=== PATIENT | female | born 1950 | race Caucasian/White ===

== ENCOUNTER 2018-06-09 07:57 | Day surgery (SDC) | payer MEDICARE, OTHER ==
[~2018-06-09] VITALS: Ht 157.5 cm; Wt 86.2 kg
[~2018-06-09 07:57] MED LIST: ASPI81EC PO; ATECHL PO; ATEN100 PO; ATEN50 PO; CALCA500S6; CYCL10 PO; ESTR1 PO; ESTR2; ESTR2 PO; HYDACE5 PO; HYDCHL12.5 PO; IBUP800 PO; LEVOXYL PO; LEVSOD125 PO; MULVITB&C PO; NAPR500 PO; OMEPRAZOLE MAGN20 MG PO; OXYACE5T PO; POTCHL10ER PO; POTCHL20ER PO; PREN-16 PO; RXCYCL10 PO; RXTRAM50 PO; TRAM50 PO
--- NOTE | 2018-06-09 08:20 | NUR ---
Ambulatory in Day SurgeryPatient states colon prep results clear. History, Chart, Medications and Allergies reviewed before start of procedure.Lungs clear T/O to Auscultation. Patient confirms NPO status and agrees with scheduled surgery. Patient States Post-Procedure ride home has been arranged.
--- NOTE | 2018-06-09 09:37 | NUR ---
06/09/18 0937 Janice Quan History, Chart, Medications and Allergies reviewed before start of procedure.PATIENT DETERMINED TO BE ASA APPROPRIATE FOR PROPOFOL SEDATION PRIOR TO START OF PROCEDURE BY . MONITOR INTACT WITH CONTINUOUS PULSE OXIMETRY AND INTERMITTENT BP.3-LEAD EKG REVIEWED WITH PHYSICIAN PRIOR TO START OF PROCEDURE.O2 VIA N/C INTACT THROUGHOUT SEDATION/PROCEDURE. PASSED ONM TO RAJNI GASTELUM THAT DR. KEMP REPORTS HE WOULD LIKE THE PATEINT TO RECEIVE IV PROTONIX PROIR TO DISCHARGE
== END 2018-06-09 22:36 | disposition home or self-care (01) ==
LOC: ORSCMMR 07:57 → ORD 09:00 → ORSCMMR 22:36
PROVIDERS: Internal Medicine Gastroenterology
PROC: 0DJD8ZZ Inspection of Lower Intestinal Tract, Via Natural or Artificial Opening Endoscopic (ICD-10-PCS; principal; 2018-06-09 09:00)
PROC: 0DB98ZX Excision of Duodenum, Via Natural or Artificial Opening Endoscopic, Diagnostic (ICD-10-PCS; principal; 2018-06-09 09:00)
PROC: 0DB58ZX Excision of Esophagus, Via Natural or Artificial Opening Endoscopic, Diagnostic (ICD-10-PCS; principal; 2018-06-09 09:00)
PROC: 0DB68ZX Excision of Stomach, Via Natural or Artificial Opening Endoscopic, Diagnostic (ICD-10-PCS; principal; 2018-06-09 09:00)
DX: D50.0 Iron deficiency anemia secondary to blood loss (chronic) (principal); K21.9 Gastro-esophageal reflux disease without esophagitis; K44.9 Diaphragmatic hernia without obstruction or gangrene; K57.30 Diverticulosis of large intestine without perforation or abscess without bleeding; Z87.11 Personal history of peptic ulcer disease; I10 Essential (primary) hypertension; E03.9 Hypothyroidism, unspecified; Z87.19 Personal history of other diseases of the digestive system; Z79.899 Other long term (current) drug therapy
CPT/HCPCS: 88305; 88341; 88342; C9113; J7120

== ENCOUNTER → 2023-07-09 | Outpatient (CLI) | payer OTHER ==
[2023-07-09 11:57] LABS: BASOPHILS ABSOLUTE AUTO 0.02 K/mm3 (0.00-0.23); BASOPHILS PERCENT AUTO 0 % (0-2); EOSINOPHILS ABSOLUTE AUTO 0.06 K/mm3 (0.00-0.68); EOSINOPHILS PERCENT AUTO 1 % (0-6); Hematocrit 46.6 % (33.0-51.0); Hemoglobin 15.1 g/dL (11.5-16.0); IMMATURE GRAN ABSOLUTE AUTO 0.03 K/mm3 (0.00-0.10); IMMATURE GRAN PERCENT AUTO 0 % (0-1); LYMPHOCYTES ABSOLUTE AUTO 2.02 K/mm3 (0.84-5.20); LYMPHOCYTES PERCENT AUTO 29 % (21-46); MONOCYTES ABSOLUTE AUTO 0.41 K/mm3 (0.16-1.47); MONOCYTES PERCENT AUTO 6 % (4-13); Mean Corpuscular HGB 31.7 pg (26.0-34.0); Mean Corpuscular HGB Conc 32.4 g/dL (31.5-36.5); Mean Corpuscular Volume 98 fL (80-100); NEUTROPHILS ABSOLUTE AUTO 4.37 K/mm3 (1.96-9.15); NEUTROPHILS PERCENT AUTO 63 % (41-73); Platelet Count 317 K/mm3 (150-400); RDW Coefficient Variation 13.7 % (11.7-14.2); RDW Standard Deviation 49.3 fL (35.1-46.3); Red Blood Cell Count 4.77 M/mm3 (3.80-5.20); White Blood Cell Count 6.91 K/mm3 (4.00-11.30)
[2023-07-09 12:07] LABS: Albumin, Blood 3.8 g/dL (3.4-5.0); Bilirubin, Total 0.6 mg/dL (0.1-1.0); Bun/Creatinine Ratio 14.4 (12.0-20.0); Calcium, Blood 9.9 mg/dL (8.5-10.1); Creatinine, Blood 0.9 mg/dL (0.40-1.00); Potassium, Blood 4.3 mmol/L (3.5-5.5); Total Protein, Blood 7.8 g/dL (6.4-8.2)
== END | disposition home or self-care (01) ==
LOC: LAB 11:46 → LAB SHORT 11:46
PROVIDERS: Chiropractor
DX: M71.21 Synovial cyst of popliteal space [Baker], right knee (principal); R22.41 Localized swelling, mass and lump, right lower limb
CPT/HCPCS: 80053; 85025; 85379

== ENCOUNTER 2024-07-13 08:49 | Day surgery (SDC) | payer OTHER ==
[~2024-07-13] VITALS: Ht 157.5 cm; Wt 71.3 kg
[~2024-07-13 08:49] MED LIST changes: +Balanced Salt Epinephrine Irrigation Solution 500 mL IR SCH; +Lidocaine HCl/Pf 1% 5 ML VIAL XX SCH; +Moxifloxacin HCL 0.5 MG/0.1 ML 0.4MLSYR LEFTEYE SCH; +PHENYLEPHRINE\\TROPICAMIDE\\TETRACAINE OPHTHALMIC DILATING SOLN LEFTEYE PRN; +Povidone-Iodine 450 DROP/30 ML Solution LEFTEYE SCH; +Povidone-Iodine 450 DROP/30 ML Solution ONE; +Tetracaine HCl/Pf 0.5% Opth Soln 4 ml ONE
[2024-07-13] MEDS ORDERED: Diazepam 2 MG Tab ONE (09:17)
[2024-07-13] MEDS ORDERED: Diazepam 5 MG Tab ONE (09:17)
[2024-07-13] MEDS ORDERED: EUTHYROX100 MC1 PO (09:38)
[2024-07-13] MEDS ORDERED: LOSARTAN POTASS25 M2 PO (09:38)
--- NOTE | 2024-07-13 09:42 | NUR ---
07/13/24 0942 Stanley Stevenson CALL LIGHT WITHIN REACH. TETRACAINE IN LEFT EYE AT 0930 AND PLEDGETT IN AT 0936.
[2024-07-13 10:40] VITALS: BP 137/67
--- NOTE | 2024-07-13 10:48 | NUR ---
07/13/24 1048 Kerry Buitrago DAUGHTER BROUGHT BACK TO BEDSIDE
== END 2024-07-13 11:08 | disposition home or self-care (01) ==
LOC: ORSCSDS 08:49
PROVIDERS: Student in an Organized Health Care Education/Training Program
PROC: 08RK3JZ Replacement of Left Lens with Synthetic Substitute, Percutaneous Approach (ICD-10-PCS; principal; 2024-07-13 10:30)
DX: H25.813 Combined forms of age-related cataract, bilateral (principal); I10 Essential (primary) hypertension; K21.9 Gastro-esophageal reflux disease without esophagitis; E07.9 Disorder of thyroid, unspecified; Z79.899 Other long term (current) drug therapy
CPT/HCPCS: A9270; V2632

== ENCOUNTER 2024-07-20 09:06 | Day surgery (SDC) | payer OTHER ==
[~2024-07-20] VITALS: Ht 157.5 cm; Wt 71.2 kg
[~2024-07-20 09:06] MED LIST changes: +Diazepam 2 MG Tab PO PRN; +EUTHYROX100 MC1 PO; +LOSARTAN POTASS25 M2 PO; -Moxifloxacin HCL 0.5 MG/0.1 ML 0.4MLSYR LEFTEYE SCH; +Moxifloxacin HCL 0.5 MG/0.1 ML 0.4MLSYR RIGHTEYE SCH; +Ondansetron 4 MG SoluTab MM PRN; -PHENYLEPHRINE\\TROPICAMIDE\\TETRACAINE OPHTHALMIC DILATING SOLN LEFTEYE PRN; +PHENYLEPHRINE\\TROPICAMIDE\\TETRACAINE OPHTHALMIC DILATING SOLN RIGHTEYE PRN; -Povidone-Iodine 450 DROP/30 ML Solution LEFTEYE SCH; +Povidone-Iodine 450 DROP/30 ML Solution RIGHTEYE SCH; +diazePAM 5 MG,diazePAM 2 MG PO SCH
[2024-07-20] MEDS ORDERED: Diazepam 10 MG Tab ONE (09:33)
[2024-07-20 10:35] VITALS: BP 168/65
== END 2024-07-20 10:51 | disposition home or self-care (01) ==
LOC: ORSCSDS 09:06
PROVIDERS: Student in an Organized Health Care Education/Training Program
PROC: 08RJ3JZ Replacement of Right Lens with Synthetic Substitute, Percutaneous Approach (ICD-10-PCS; principal; 2024-07-20 10:30)
DX: H25.811 Combined forms of age-related cataract, right eye (principal); Z96.1 Presence of intraocular lens; I10 Essential (primary) hypertension; Z79.899 Other long term (current) drug therapy
CPT/HCPCS: A9270; V2632

== ENCOUNTER 2025-03-30 23:00 | Emergency (ER) | payer OTHER ==
[~2025-03-30] VITALS: Ht 157.5 cm; Wt 69.0 kg
[~2025-03-30 23:00] MED LIST changes: -Balanced Salt Epinephrine Irrigation Solution 500 mL IR SCH; -Diazepam 2 MG Tab PO PRN; -Lidocaine HCl/Pf 1% 5 ML VIAL XX SCH; -Moxifloxacin HCL 0.5 MG/0.1 ML 0.4MLSYR RIGHTEYE SCH; -Ondansetron 4 MG SoluTab MM PRN; -PHENYLEPHRINE\\TROPICAMIDE\\TETRACAINE OPHTHALMIC DILATING SOLN RIGHTEYE PRN; -Povidone-Iodine 450 DROP/30 ML Solution ONE; -Povidone-Iodine 450 DROP/30 ML Solution RIGHTEYE SCH; -Tetracaine HCl/Pf 0.5% Opth Soln 4 ml ONE; -diazePAM 5 MG,diazePAM 2 MG PO SCH
[2025-03-30 23:15] VITALS: BP 177/87
== END 2025-03-31 00:04 | disposition home or self-care (01) ==
LOC: ER 23:00
DX: S83.91XA Sprain of unspecified site of right knee, initial encounter (principal); X50.1XXA Overexertion from prolonged static or awkward postures, initial encounter; I10 Essential (primary) hypertension; Z79.899 Other long term (current) drug therapy; Z79.890 Hormone replacement therapy
CPT/HCPCS: 73562-RT; 99283-25

== ENCOUNTER 2025-05-25 12:26 | Emergency (ER) | payer OTHER ==
[~2025-05-25] VITALS: Ht 157.5 cm; Wt 68.0 kg
[2025-05-25 12:28] VITALS: BP 195/84
[2025-05-25] MEDS ORDERED: DONEPEZIL HCL5 M2 PO (13:25)
== END 2025-05-25 14:27 | disposition home or self-care (01) ==
LOC: ER 12:26
DX: S63.92XA Sprain of unspecified part of left wrist and hand, initial encounter (principal); I10 Essential (primary) hypertension; W18.30XA Fall on same level, unspecified, initial encounter
CPT/HCPCS: 73130; 99283-25